=== PATIENT | male | born 1990 | race Caucasian/White ===

== ENCOUNTER 2022-04-18 10:38 | Emergency (ER) | payer OTHER ==
[~2022-04-18 10:38] MED LIST: MEDROL 4MG DOSEP4 MG PO
[2022-04-18] MEDS ORDERED: EPIPEN 2-P0.3 MG/0.3 IM (12:27)
== END 2022-04-18 12:33 | disposition home or self-care (01) ==
LOC: FER 10:38
DX: S21.259A Open bite of unspecified back wall of thorax without penetration into thoracic cavity, initial encounter (principal); Z91.030 Bee allergy status; W57.XXXA Bitten or stung by nonvenomous insect and other nonvenomous arthropods, initial encounter
CPT/HCPCS: 99281